=== PATIENT | male | born 1990 | race Caucasian/White ===

== ENCOUNTER 2017-02-14 22:09 | Emergency (ER) | payer BC ==
[2017-02-14 22:23] VITALS: O2SAT 97
[2017-02-14] MEDS ORDERED: Ativan 2 MG/1 ML VIAL IV ONE (22:24)
[2017-02-14] MEDS ORDERED: Sodium Chloride 0.9% 1000 ML 1,000 ML IV STA (22:24)
[2017-02-14] MEDS ORDERED: TORAdol 30 mg Injection IV ONE (22:24)
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
[2017-02-14] MEDS ORDERED: TORAdol 30 mg Injection ONE (22:30)
[2017-02-14] MEDS ORDERED: Ativan 2 MG/1 ML VIAL ONE (22:30)
[2017-02-14] MEDS ORDERED: Sodium Chloride 0.9% 1000 ML 1,000 ML ONE (22:30)
[2017-02-14 22:38] LABS: BASOPHIL % 0.4 % (0.0-0.4); Eosinophil % 0.9 % (0.00-5.0); Granulocytes % 48.3 % (36.0-66.0); Lymphocytes % 44.1 % (24.0-44.0); Mean Cell Volume 82.7 fl (78-100); Mean Corpuscular Hemoglobin 29.2 pg (26-32); Mean Platelet Volume 10.3 fl (6-9.5); Monocytes % 6.3 % (0.0-12.0); Platelet Count 279 K/mm3 (150-450); Red Blood Count 5.37 M/mm3 (4.1-5.6); Red Cell Distribution Width 12.2 % (11.5-14.0); White Blood Count 6.8 K/mm3 (4.0-10.5)
[2017-02-14 22:44] LABS: ANION GAP 19.8 MEQ/L (5-15); BLOOD UREA NITROGEN 12 mg/dL (9-20); CHLORIDE 106 mEq/L (98-107); Carbon Dioxide 24.8 mEq/L (21-32); Glucose 126 MG/DL (70-110); Potassium 3.5 mEq/L (3.5-5.1); SODIUM 147 mEq/L (136-145)
[2017-02-14 23:05] VITALS: BP 126/78; PULSE 96
--- NOTE | 2017-02-15 08:13 | XRAY ---
Indication: Chest pain following chest injury. Comparison: May 04, 2014. PA/lateral chest again demonstrates normal heart, lungs, and bony thorax.
== END 2017-02-14 23:44 | disposition home or self-care (01) ==
LOC: ED 22:09
DX: S20.219A Contusion of unspecified front wall of thorax, initial encounter (principal); Y04.0XXA Assault by unarmed brawl or fight, initial encounter; W03.XXXA Other fall on same level due to collision with another person, initial encounter; R07.89 Other chest pain
CPT/HCPCS: 36000; 36415; 71020; 80048; 80307; 84484; 85025; 93005; 96360; 96374; 99284; J1885; J2060

== ENCOUNTER 2018-02-05 23:01 | Emergency (ER) | payer BC ==
[2018-02-05 23:20] VITALS: O2SAT 100
[2018-02-05] MEDS ORDERED: Adacel Vial IM ONE ×2 (23:26→23:32)
[2018-02-05] MEDS ORDERED: BACIGUENT PACKET TP ONE (23:26)
[2018-02-05] MEDS ORDERED: KEFZOL 1 GM IM ONE (23:28)
[2018-02-05] MEDS ORDERED: KEFZOL 1 GM ONE (23:31)
[2018-02-05] MEDS ORDERED: BACIGUENT PACKET ONE (23:31)
--- NOTE | 2018-02-05 23:32 | ERPHSYRPT ---
- History of Present Illness Time Seen by Provider: 02/05/18 23:22 Source: patient Exam Limitations: no limitations Patient Subjective Stated Complaint: pt was drilling the washer at home and slipped and drilled through hand. Triage Nursing Assessment: pt does not appear to be in acute distress. puncture wound to left hand below thumb. moderate redness and swelling noted around the punture wound. Physician History: 27-year-old white male arrives with complaint of puncture wound to his dorsal right hand overlying the second metacarpal symptoms for approximately 40 minutes. Patient states he was drilling a washer when he drilled his hand. He complains of pain in the area he has a puncture wound in the area. He has full range of motion to his left hand and fingers good capillary refill to left hand and fingers and sensation is intact to left hand and fingers. Past medical history includes febrile seizures. Past surgical history includes right wrist and elbow surgery Occurred: just prior to arrival Method of Injury: other (accidentally drilled his left hand while working on a washer) Quality: constant Extremities Pain Location: hand: left Modifying Factors: Improves With: nothing Associated Symptoms: other (pain left handpuncture wound left hand) Allergies/Adverse Reactions: No Known Drug Allergies Allergy (Unverified 02/14/17 22:24) Hx Tetanus, Diphtheria Vaccination/Date Given: No Hx Influenza Vaccination/Date Given: Yes Hx Pneumococcal Vaccination/Date Given: No Immunizations Up to Date: No - Review of Systems Constitutional: No Fever, No Chills Eyes: No Symptoms Ears, Nose, & Throat: No Symptoms Respiratory: No Cough, No Dyspnea Cardiac: No Chest Pain, No Edema, No Syncope Abdominal/Gastrointestinal: No Abdominal Pain, No Nausea, No Vomiting, No Diarrhea Genitourinary Symptoms: No Dysuria Musculoskeletal: Other (pain left hand puncture wound left hand) Skin: No Rash Neurological: No Dizziness, No Focal Weakness, No Sensory Changes Psychological: No Symptoms Endocrine: No Symptoms All Other Systems: Reviewed and Negative - Past Medical History Pertinent Past Medical History: No Neurological History: Seizures, Other ENT History: No Pertinent History Cardiac History: No Pertinent History Respiratory History: No Pertinent History Endocrine Medical History: No Pertinent History Musculoskeletal History: No Pertinent History GI Medical History: No Pertinent History History: No Pertinent History Psycho-Social History: No Pertinent History Male Reproductive Disorders: No Pertinent History Other Medical History: FEBRILE SEIZURES - Past Surgical History Past Surgical History: Yes Neuro Surgical History: No Pertinent History Cardiac: No Pertinent History Respiratory: No Pertinent History Gastrointestinal: No Pertinent History Genitourinary: No Pertinent History Musculoskeletal: No Pertinent History, Other Male Surgical History: No Pertinent History Other Surgical History: right wrist and right elbow injury - Social History Smoking Status: Former smoker How long have you smoked: 3 Exposure to second hand smoke: Yes Drug Use: none Patient Lives Alone: No - Nursing Vital Signs Nursing Vital Signs: Initial Vital Signs Temperature 98.2 F 02/05/18 23:11 Pulse Rate 79 02/05/18 23:11 Respiratory Rate 16 02/05/18 23:11 Blood Pressure 141/82 02/05/18 23:11 O2 Sat by Pulse Oximetry 100 02/05/18 23:11 Pain Scale Pain Intensity 8 - Physical Exam General Appearance: mild distress Eyes, Ears, Nose, Throat Exam: moist mucous membranes Neck Exam: non-tender, supple Cardiovascular/Respiratory Exam: chest non-tender, normal breath sounds, regular rate/rhythm, no respiratory distress Abdominal Exam: non-tender, No guarding Back Exam: normal inspection, normal range of motion, No vertebral tenderness Shoulder Exam: normal inspection, non-tender, no evidence of injury, normal ROM Elbow/Forearm Exam: normal inspection, non-tender, no evidence of injury, normal ROM Wrist Exam: normal inspection, non-tender, no evidence of injury, normal ROM Hand Exam: No normal inspection (1 cm laceration/puncture wound left hand overlying mid dorsal second metacarpal. Full range of motion left hand and fingers good capillary refill left fingers sensation intact left fingers) Neuro/Tendon Exam: normal sensation, normal motor functions Mental Status Exam: alert, oriented x 3, cooperative Skin Exam: normal color, warm, dry SpO2 Interpretation: normal (100%) SpO2: 100 Oxygen Delivery: Room Air - Course Nursing assessment & vital signs reviewed: Yes - Radiology Exams Left Hand X-ray Interpretation: Interpreted by me, Other (x-ray left hand tiny area of hyperlucency overlying proximal left second metacarpal. No fractures) Ordered Tests: Active Orders 24 hr Category Date Time Status Wound Care STAT Care 02/05/18 23:26 Active HAND (MINIMUM 3 VIEWS) Stat Exams 02/05/18 23:26 Taken Medication Summary Discontinued Medications Generic Name Dose Route Start Last Admin Trade Name Freq PRN Reason Stop Dose Admin Bacitracin 0.9 gm 02/05/18 23:26 Baciguent Packet TP 02/05/18 23:27 STAT ONE Bacitracin Confirm 02/05/18 23:31 Baciguent Packet Administered 02/05/18 23:32 Dose 1 gm .ROUTE .STK-MED ONE Cefazolin Sodium 1 g 02/05/18 23:28 Kefzol 1 Gm IM 02/05/18 23:29 STAT ONE Cefazolin Sodium Confirm 02/05/18 23:31 Kefzol 1 Gm Administered 02/05/18 23:32 Dose 1 g .ROUTE .STK-MED ONE Diphtheria/Tetanus/Acell Pertussis 0.5 ml 02/05/18 23:26 Adacel Vial IM 02/05/18 23:27 .ONCE ONE Diphtheria/Tetanus/Acell Pertussis Confirm 02/05/18 23:32 Adacel Vial Administered 02/05/18 23:33 Dose 0.5 ml IM .STK-MED ONE - Progress Progress: improved Progress Note: 02/05/18 23:52 27-year-old white male accidentally drilled his left hand while cutting on washer he has approximately 1 cm laceration/puncture wound overlying the mid left second metacarpal he has full range of motion to his left hand good capillary refill to all left fingers. Sensation intact to all left fingers. X-ray of the left hand small area of high per lucency overlying the proximal left second metacarpal. No fractures. Patient will be given Keflex 1 g IM sent home on Keflex 500 mg orally every 6 hours for 7 days. Will give patient [place] for pain. Patient to clean the area and apply bacitracin several times daily. 02/05/18 23:54 Patient's DTaP was updated - Departure Time of Disposition: 23:54 Departure Disposition: Home Clinical Impression: Puncture wound of left hand Qualifiers: Encounter type: initial encounter Foreign body presence: unspecified Qualified Code(s): S61.432A - Puncture wound without foreign body of left hand, initial encounter Condition: Fair Critical Care Time: No Referrals: LALO GARCIA [Primary Care Provider] - Additional Instructions: Return home. Clean area and apply bacitracin several times daily. [place] 5/325 one orally every 4-6 hours as needed for pain #10. Keflex 500 mg orally every 6 hours for 7 days. Follow-up with your family doctor. Return for acute distress or for severe symptoms. Prescriptions: Cephalexin Mh 500 mg [Keflex 500 mg] 500 mg PO Q6H #28 capsule Hydrocodone/Acetaminophen [[place] 5-325 Tablet] 1 tab PO Q4-6HPRN PRN #10 tablet MDD 6 tablets PRN Reason: Pain
[2018-02-05] MEDS ORDERED: NORCO 5/325 MG PO ONE (23:58)
[2018-02-06 00:03] VITALS: BP 154/74; PULSE 67
[2018-02-06] MEDS ORDERED: NORCO 5/325 MG ONE (00:19)
--- NOTE | 2018-02-06 09:35 | XRAY ---
Indication: Puncture wound. Comparison: None 3 views of the left hand obtained. No bony, articular, or soft tissue abnormalities.
== END 2018-02-06 00:38 | disposition home or self-care (01) ==
LOC: ED 23:01
DX: S61.432A Puncture wound without foreign body of left hand, initial encounter (principal); W31.89XA Contact with other specified machinery, initial encounter
CPT/HCPCS: 73130; 90471; 90715; 96372; 99284; J0690; A9270-GY

== ENCOUNTER 2019-08-16 10:44 | Day surgery (SDC) | payer BC ==
--- NOTE | 2019-08-16 09:44 | HP ---
DATE OF SURGERY: 08/16/2019 HISTORY OF PRESENT ILLNESS: The patient is a 28 year-old with pain. He had wire wheel blocker type operation and had part of a wire flip into his right leg, some pain. Embedded piece of wire on the film. It is bad enough that he desires exploration and removal. PAST MEDICAL HISTORY: No chronic illnesses. PAST SURGICAL HISTORY: Elbow surgery in the past. Arthroscopy of elbow and wrist in the past. MEDICATIONS: None on a regular basis. He has taken Flonase in the past. ALLERGIES: NKDA. SEASONAL, DUST, ENVIRONMENTAL ALLERGY. FAMILY HISTORY: Negative in regards to this problem. SOCIAL HISTORY: No smoking or alcohol abuse. REVIEW OF SYSTEMS: Fourteen systems reviewed. No chest pain or palpitations other systems negative or noncontributory as above and per preadmission questionnaire. PHYSICAL EXAMINATION: GENERAL: No acute distress. HEENT: Sclerae nonicteric. NECK: No JVD. CHEST: Equal excursion, nonlabored breathing. CVS: Regular rate and rhythm. ABDOMEN: Soft. EXTREMITIES: He has some swelling in the area where he has this radiopaque density reported on his films over the distal femur medial condyle area. Small wire-like foreign body consistent with metal wire/brush wheel he was using. He has a little bit of indurated area there. No current drainage. No cyanosis. NEURO: Alert, oriented, moving extremities symmetrically. IMPRESSION: Retained foreign body causing some symptoms, aches and pains. He desires removal. General risk of bleeding, infection, possibility he could have new aches and pains, burning or numbness just from dissecting down to the foreign body itself. He also understands possibility he may have to go through some normal tissue just to get to the foreign body and likely will use C-arm to confirm the location. He understands as well as general risk of anesthesia, deep venous thrombosis, pulmonary embolism, pneumonia but not limited to, aches, pains, remote possibility may not be able to localize the foreign body and may have to wait until it migrates closer to the surface. He understands all of the above but not limited to, as well as general risk of aches, pains. Will proceed with exploration of right leg, removal of foreign body with C-arm with possible removal of foreign body if able to with C-arm.
[~2019-08-16 10:44] MED LIST: Lactated Ringers 1,000 ML IV ONE; Lactated Ringers 1,000 ML IV SCH; Sensorcaine 0.25% 10 ML ONE
[2019-08-16] MEDS ORDERED: Lactated Ringers 1,000 ML IV ONE (10:52)
[2019-08-16 11:15] VITALS: O2SAT 100
[2019-08-16] MEDS ORDERED: SUBLIMAZE 100 MCG/2 ML ONE ×2 (12:35→13:22)
[2019-08-16] MEDS ORDERED: DIPRIVAN 200 MG/20 ML IV ONE (12:35)
[2019-08-16] MEDS ORDERED: Versed 2 MG/2 ML Injection ONE (12:36)
[2019-08-16] MEDS ORDERED: KEFZOL 1 GM ONE (12:48)
--- NOTE | 2019-08-16 13:57 | XRAY ---
Indication: Foreign body removal. Intraoperative fluoroscopy was provided for 27 seconds. 3 digital spot images submitted for interpretation demonstrates successful removal of metallic wire adjacent to the medial femur condyle. Correlate with intraoperative findings/report.
[2019-08-16] MEDS ORDERED: MORPHINE SULFATE 10 MG/ML ONE (14:02)
[2019-08-16] MEDS ORDERED: TORAdol 30 mg Injection ONE (14:03)
[2019-08-16] MEDS ORDERED: NORCO 5/325 MG PO PRN (14:30)
[2019-08-16] MEDS ORDERED: MORPHINE SULFATE 2 MG INJ IV PRN (14:31)
[2019-08-16] MEDS ORDERED: NORCO 5/325 MG ONE (14:35)
[2019-08-16] MEDS ORDERED: MORPHINE SULFATE 2 MG INJ ONE (14:35)
[2019-08-16 14:41] VITALS: PULSE 59
--- NOTE | 2019-08-16 14:55 | XRAY ---
27 seconds of fluoroscopy was used in surgery for foreign body removal of right lower extremity.
[2019-08-16 14:59] VITALS: BP 120/76
--- NOTE | 2019-08-17 08:31 | OP ---
SURGERY DATE/TIME: 08/16/2019 1233 PREOPERATIVE DIAGNOSIS: Symptomatic painful retained foreign body right lower extremity knee area. POSTOPERATIVE DIAGNOSIS: Symptomatic painful retained foreign body right lower extremity knee area. PROCEDURE: Exploration right lower extremity knee area with removal of retained foreign body (wire) with C-arm fluoroscopy, difficult. SURGEON: Dr. Dwain Carnes. ANESTHESIA: General. ESTIMATED BLOOD LOSS: Minimal. INDICATIONS: As noted above. Risks and benefits explained in detail and not limited to and consent obtained. The site was confirmed and marked in the preoperative holding area. DESCRIPTION OF PROCEDURE AND FINDINGS: The patient is taken to the operating room. General anesthesia introduced. The right lower extremity prepped and draped in usual sterile fashion. After official time out and no disagreement with planned procedure, a clamp was placed. This wire had migrated much deeper towards the bony area compared to the entrance track. A transverse incision made. Dissection is carried down. External fascia is carefully down through the muscles. Despite this it took another extra 30 to 40 minutes on top of the usual procedure time given this very slender needle-thin segment of wire that was very difficult to identify. Despite taking some spot films of multiple different things, placing clamps to localize it could not be palpated because of its slender needle-like shape. Again, it was quite difficult but slowly and carefully finally was able to be identified between some muscle slivers. It was able to be removed. Two final spot films were used to confirm location of the clamp had been near where the wire had been showed the wire was gone and the final picture of the knee with the wire gone. The foreign body picture was taken on the cap on the C-arm outside the patient confirming removal. It was passed off for pathology. Copious amount of irrigation irrigating until clear. There had been no obvious pus pocket. It was felt worthwhile closing this. Again, wound irrigated out. Fascia closed with 0 Vicryl, subcu closed with 3-0 Vicryl, skin closed with 4-0 Vicryl. Steri-Strips and sterile dressing applied. 0.25% Marcaine local injected along the wound area. The patient tolerated the procedure well. There were no immediate complications. Findings discussed with the family out in the waiting area. It had been very difficult given the tiny, needle-shaped, thin wire but had been finally identified and removed. Again, using as minimal C-arm fluoroscopy as possible. All spot films. No continuous lights. No real continuous light coverage.
== END 2019-08-16 15:21 | disposition home or self-care (01) ==
LOC: SDC 10:44
PROVIDERS: ATTEND Surgery
DX: M79.5 Residual foreign body in soft tissue (principal)
CPT/HCPCS: 73560; 76000; J0690; J1885; J2250; J2270; J2704; J3010; A9270-GY